=== PATIENT | female | born 1930 | race Caucasian/White ===

== ENCOUNTER 2018-05-16 10:45 | Emergency (ER) | payer OTHER ==
[~2018-05-16] VITALS: Ht 160 cm; Wt 66.7 kg
[2018-05-16 11:29] LABS: ABSOLUTE NEUTROPHILS 7.6 thou/uL (1.4-8.2); BASOPHILS 0.5 % (0.0-2.0); EOSINOPHILS 0.5 % (0.0-3.0); HEMATOCRIT 45.7 % (37.0-47.0); HEMOGLOBIN 15.4 gm/dL (12.0-15.0); LYMPHOCYTES 7.9 % (24.0-44.0); MCH 30.2 pg (26.0-34.0); MCHC 33.7 g/dL (28.0-37.0); MCV 89.7 fL (80.0-100.0); MONOCYTES 10.5 % (1.0-8.0); PLATELET COUNT 398 thou/uL (150-400); POLYS 80.6 % (36.0-66.0); RDW 12.8 % (10.5-14.5); WBC 9.4 thou/uL (4.0-11.0)
[2018-05-16 11:35] LABS: ANION GAP 9 mmol/L (7-16); BUN 11 mg/dL (7-18); CALCIUM 9.9 mg/dL (8.5-10.1); CHLORIDE 99 mmol/L (98-107); CO2 28 mmol/L (21-32); CREATININE 0.8 mg/dL (0.6-1.0); GLUCOSE 170 mg/dL (74-106); POTASSIUM 3.5 mmol/L (3.5-5.1); SODIUM 136 mmol/L (136-145)
[2018-05-16 11:44] LABS: ALBUMIN 3.8 g/dL (3.4-5.0); APTT 36.7 Seconds (24.5-32.8); D-DIMER 0.24 ug/mLFEU (0.19-0.50); INR 1.3; MAGNESIUM 1.7 mg/dL (1.8-2.4); PROTIME 13.2 Seconds (9.3-11.4); SGOT 20 U/L (15-37); SGPT 20 U/L (30-65); TOTAL BILIRUBIN 0.8 mg/dL (<0.1-1.0); TOTAL PROTEIN 8.1 g/dL (6.4-8.2); TROPONIN-I <0.06 ng/mL (<0.06)
[2018-05-16] MEDS ORDERED: SYNTHROID50 MCG PO (11:44)
[2018-05-16] MEDS ORDERED: OMEGA-31000 M1 PO (11:44)
[2018-05-16] MEDS ORDERED: CALCIUM 600 +1 EAC1 PO (11:44)
[2018-05-16] MEDS ORDERED: TYLENOL EXTRA500 MG PO (11:45)
[2018-05-16] MEDS ORDERED: XARELTO15 MG PO (11:45)
[2018-05-16] MEDS ORDERED: MELATONIN5 M1 PO (11:46)
[2018-05-16] MEDS ORDERED: ALLERCLEAR10 MG PO (11:50)
[2018-05-16] MEDS ORDERED: UNICOMPLEX M TA1 TA1 PO (11:51)
[2018-05-16] MEDS ORDERED: TIAZAC360 M1 PO (11:51)
[2018-05-16] MEDS ORDERED: VENTOLIN HFA 1818 GM INH (11:57)
[2018-05-16] MEDS ORDERED: TOPROL XL25 MG PO (11:59)
[2018-05-16 12:28] VITALS: BP 135/72
--- NOTE | 2018-05-17 22:01 | EKG ---
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
== END 2018-05-16 12:43 | disposition home or self-care (01) ==
LOC: ER 10:45
PROVIDERS: Emergency Medicine
DX: R06.02 Shortness of breath (principal); I48.2 Chronic atrial fibrillation; I10 Essential (primary) hypertension; E89.0 Postprocedural hypothyroidism; Z87.891 Personal history of nicotine dependence

== ENCOUNTER → 2019-06-10 | Outpatient (CLI) | payer OTHER ==
[~2019-06-10] MED LIST: ALLERCLEAR10 MG PO; CALCIUM 600 +1 EAC1 PO; MELATONIN5 M1 PO; OMEGA-31000 M1 PO; SYNTHROID50 MCG PO; TIAZAC360 M1 PO; TOPROL XL25 MG PO; TYLENOL EXTRA500 MG PO; UNICOMPLEX M TA1 TA1 PO; VENTOLIN HFA 1818 GM INH; XARELTO15 MG PO
== END ==
LOC: SJCVC 12:52
DX: I48.21 Permanent atrial fibrillation (principal); R94.31 Abnormal electrocardiogram [ECG] [EKG]; I10 Essential (primary) hypertension; D68.59 Other primary thrombophilia; K21.9 Gastro-esophageal reflux disease without esophagitis; E78.5 Hyperlipidemia, unspecified; E03.9 Hypothyroidism, unspecified; Z79.899 Other long term (current) drug therapy; Z87.891 Personal history of nicotine dependence